=== PATIENT | female | born 1975 | race Caucasian/White ===

== ENCOUNTER 2018-02-20 08:53 | Day surgery (SDC) | payer OTHER, SELFPAY ==
[2018-02-20] VITALS (14 sets, daily range): BP systolic 105–139; BP diastolic 66–92; PULSE 75–97; RESP 8–19; TEMP 36–36.7; O2SAT 95–100; BMI 40.0
[2018-02-20] MEDS: LACTATED RINGERS 1,000 ML 42 ML IV ×2 (09:20→13:50)
--- NOTE | 2018-02-20 10:26 | PM.PREOP ---
Pre-operative Note Interval Note Pre-op Check: History & Physical Reviewed by Physician and Exam Performed H&P completed within 30 days and has changed as indicated here:: No changes
[2018-02-20] MEDS: CEFAZOLIN 2 GM/100 ML FROZ.PIGGY 0.733 GM IV (11:05)
--- NOTE | 2018-02-20 11:32 | SUR.OPER ---
Supine on padded OR bed, head on pillow, arms secured on padded arm boards at <90 degrees abduction, legs uncrossed, safety belt at thigh, tape over blanket over lower legs. Lateral thigh support in place.
[2018-02-20] MEDS: MORPHINE-PF 10 MG/10 ML INJ INJ (11:38)
[2018-02-20] MEDS: SODIUM CHLORIDE IRRIG SOLUTION 3,000 ML, EPINEPHrine 1 MG IRR (11:39)
[2018-02-20] MEDS: ROPIVACAINE 0.2% PF 2 MG/ML 10ML AMP 10 ML INJ (11:39)
[2018-02-20] MEDS: fentaNYL 100 MCG/2 ML INJ IV (12:53)
[2018-02-20] MEDS: HYDROMORPHONE 2 MG INJ 0.5 MG IV ×4 (13:02→13:30)
[2018-02-20] MEDS: fentaNYL 100 MCG/2 ML INJ 50 MCG IV ×2 (13:05→13:22)
--- NOTE | 2018-02-20 13:13 | P.OP_ITS ---
Operative Date/Time/Diagnoses Date of procedure: 02/20/18 Time of procedure: 11:20 Pre-op diagnosis: Medial meniscus tear Post-op diagnosis: other (Lateral meniscus tear, medial plica) Procedure & Clinicians Procedure: 1. Left knee arthroscopy with lateral meniscus repair and lateral tibial plateau chondroplasty. 2. Left knee arthroscopy with medial plica excision. Same procedure as scheduled: No Indications: This is a 42-year-old female who presented with several month history of left knee pain that began the posterior aspect of the knee but also she had medial sided anterior knee pain. 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 She was referred to Orthopedic Surgery an MRI was obtained that showed a possible medial meniscus tear. Treatment options were discussed with the patient include indications, expectations, risks and benefits. We discussed the risks of surgery to include but not limited to infection, bleeding, damage to neurovascular structures, need for additional surgery, recurrent meniscus tears, persistent or worsening pain, iatrogenic chondromalacia, deep vein thrombosis, pulmonary embolism, loss of limb and loss of life. After answering all questions, patient elected to proceed with surgery and informed consent was obtained. Surgeon: Mary Reynoso Rfid Analyst: Gato Ernst Anesthesia Type: General (LMA) and Local (10 mg of Duramorph and 10 mg of 0.2 opivacaine were injected intra-articularly and 5 mL of 0.2 opivacaine without epinephrine were injected about the portal incisions.) Operative Notes Findings: 1. Lateral meniscus capsule labral separation the posterior horn. 2. Medial plica with adjacent chondromalacia of the medial femoral condyle. 3. 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 Closure Type: primary Specimen(s): none sent Implants & Drains: Barker [employer] Nephew Fast Fix 360 degree meniscal repair x2. Estimated Blood Loss (mL): 5 Blood products transfused: none Tourniquet time (min): 0 Procedure in detail: The patient was met in the preoperative hold area on the morning of surgery were reconfirmed with the correct patient, were planed to the correct procedure had the correct extremity which was the left lower extremity identified. Prior to the patient receiving any medications operative extremity was initialed by the surgeon. The patient was then brought back to the operating room in stable condition placed supine on the operating room table. All bony prominences were well padded and sequential compression devices were placed on the nonoperative lower extremity. General anesthesia was then induced without complication and LMA was placed. The left lower extremity was then examined under anesthesia and found to have a range of motion of 0-130 degrees, stable to varus and valgus at both 0 and 30?, negative anterior and posterior drawer. The left lower extremity was prepped and draped in usual sterile fashion. After final draping an additional ChloraPrep was utilized on the operative site. 3 min were allowed to elapse to enable ChloraPrep to dry. We held a surgical time-out we confirmed that with the correct patient, planned to correct procedure and had the correct extremity which is left lower extremity identified. We also confirmed the patient received preoperative antibiotics, that all necessary gear was in the room confirmed sterile, and that no members of the operative team had a concerns. I began by making a standard anterio- lateral portal by 1st sharply incised with 11 blade and introduced a trocar with a blunt introducer into the patellofemoral joint. I then inserted the camera and began my diagnostic examination. Immediately upon entering the patellofemoral joint diffuse grade 2 and 3 chondromalacia was evident. The other no loose bodies in the lateral gutter. The was a medial plica with adjacent chondromalacia on the medial femoral condyle. I then continued into the medial compartment. I made a standard anterior medial portal under direct visualization by 1st localizing with an 18 gauge needle and then incising the skin with 11 blade introducing a blunt dissector into the medial compartment. I then introduced a probe and continued my examination. There was diffuse grade 2 and 3 chondromalacia of both the medial femoral condyle and the medial tibial plateau. The medial meniscus was intact without any tears. I then continued my examination to the notch where the ACL and PCL were intact. I then examined the lateral compartment where there was grade 2 and 3 diffuse chondromalacia of the tibial plateau. Probing of the lateral meniscus showed there to be a meniscal capsular separation at the posterior horn with some increased excursion of the lateral meniscus into the joint. I then inserted a sucker shaver and debrided this tear. During debridement fluid presumably from the Castle cyst was seen coming into the joint. I then inserted a ball rasp and rasped the tear. I then utilized a sucker shaver to debride the lateral tibial plateau of any loose cartilage. I then utilized a sucker shaver to debride the medial plica. I then turned my attention to repairing the lateral meniscus and inserted a [employer]hew 360 degree fast fix at the labral capsular junction in a horizontal mattress fashion. They remained still some gap between the labrum and the capsular for inserted a 2nd one in a vertical mattress fashion. I then inserted the probe and confirmed that the meniscus no longer had abnormal excursion into the joint. All arthroscopic equipment was then removed from the knee. The lateral portal subcuticular layer was closed utilizing 2 -0 Vicryl in a buried fashion. The skin of both portals was closed utilizing 3-0 Monocryl in buried simple fashion. Mastisol Steri-Strips were then placed over the incisions. I then injected 10 mg of Duramorph and 10 mg of 0.2% ropivacaine without epinephrine intra-articularly through a superior lateral approach. I then injected 5 mL of 0.2% ropivacaine without epinephrine about the portal incisions. The wounds were then dressed with sterile Xeroform, plain gauze and ABD. A Matt hose was then placed over this. All sponge counts and needle counts were correct at the conclusion of the case. Patient was woken from general anesthesia without complication taken to the PACU in stable condition. Complications: none Condition: stable Disposition: PACU Plan for aftercare: Patient will discharge home same day surgery. She will be nonweightbearing on her left lower extremity with crutches. She will be in a [id number] brace with the brace locked in extension. I will see the patient back in 10-14 days for wound check.
[2018-02-20] MEDS: LORazepam 2 MG/ML SYRINGE 0.25 MG IV (13:17)
--- NOTE | 2018-02-20 13:45 | SUR.PHASEI ---
OPERATIVE EXTREMITY HAS THIGH HIGH PORTER HOSE ON PLACE OVER ABD DRESSING WHICH IS C/D//I.
[2018-02-20] MEDS: OXYCODONE/ACETAMINOPHEN 5/325 TABLET 1 TAB PO ×2 (14:06→14:37)
== END 2018-02-20 15:07 ==
PROVIDERS: PCP Family Medicine; Visit Provider Orthopaedic Surgery
PROC: (CPT 29870; principal; 2018-02-20 10:15)
DX: S83.282A Other tear of lateral meniscus, current injury, left knee, initial encounter (principal); M94.262 Chondromalacia, left knee; M67.52 Plica syndrome, left knee; E66.9 Obesity, unspecified; G47.33 Obstructive sleep apnea (adult) (pediatric)
CPT/HCPCS: 29882; J0171; J0690; J1100; J1170; J2060; J2250; J2274; J2405; J2704; J2795; J3010

== ENCOUNTER 2018-03-06 18:21 | Emergency (ER) | payer OTHER, SELFPAY ==
[2018-03-06 18:33] VITALS: BP 129/85; PULSE 90; RESP 16; TEMP 36.8; O2SAT 98
--- NOTE | 2018-03-06 21:25 | DI.RAD.S_ITS ---
PROCEDURE: XR FOOT LT MIN 3V INDICATIONS: pain, decreased range of motion after heavy step TECHNIQUE: 3 views of the foot were acquired. COMPARISON: None. FINDINGS: Bones: No fractures or dislocations. No suspicious bony lesions. Soft tissues: No tibiotalar joint effusion. Achilles tendon appears normal. IMPRESSION: No visualized acute fracture or dislocation. However, if clinical concern and/or pain persist, short interval imaging followup in 7-10 days is recommended, as occult injury cannot be definitively excluded. Dictated by: Ryanne Andersen M.D. on 03/06/2018 at 22:14 Approved by: Ryanne Andersen M.D. on 03/06/2018 at 22:15
--- NOTE | 2018-03-06 21:35 | ED.LOWEXIN ---
HPI - Extremity Injury (Lower) <MORELIA Manning - Last Filed: 03/06/18 23:19> General Chief Complaint: Extremity Injury, Lower Stated Complaint: LE FOOT GETTING WARM, SWOLLEN Time Seen by Provider: 03/06/18 21:20 Source: patient Mode of arrival: ambulatory Limitations: no limitations History of Present Illness HPI Narrative: Patient presents with left foot pain after taking a hard step onto left foot. She states she almost fell and bent back the top of her foot. She has history of her recent meniscus repair. She has been taking Tylenol for it. This accident occurred on Saturday. She denies numbness or tingling in her foot. She has applied ice. She is concerned about a fracture or a blood clot. She states that her foot feels hot on the top in on the inside. Related Data Home Medications Medication Instructions Recorded Confirmed cholecalciferol (vitamin D3) 2,000 unit PO 02/17/18 [Vitamin D3] pantoprazole [Protonix] 40 mg PO DAILY 02/17/18 03/06/18 acetaminophen [Mapap 650 mg PO Q6HR PRN 03/06/18 03/06/18 (acetaminophen)] celecoxib 100 mg PO DAILY 03/06/18 03/06/18 Allergies Allergy/AdvReac Type Severity Reaction Status Date / Time No Known Drug Allergies Allergy Verified 02/17/18 14:09 [facility] Systems [facility] Last Filed: 03/06/18 23:19> Review of Systems GENERAL: Denies chills, fatigue, malaise, fever, sweats. HEENT: Denies sinus pain, ear pain, sore throat, difficulty swallowing, dizziness. RESPIRATORY: Denies dyspnea, cough, wheezing, hemoptysis, sputum. CARDIOVASCULAR: Denies chest pain, palpitations, orthopnea, edema, GASTROINTESTINAL: Denies nausea, vomiting, abdominal pain, diarrhea, constipation, melena. : Denies dysuria, frequency, incontinence, hematuria, urinary retention. MUSCULOSKELETAL: See HPI SKIN: See HPI NEUROLOGIC: Denies weakness, headache, numbness, change in speech, confusion, seizures, incoordination. PSYCHIATRIC: No concerning psychosocial issues. 12 point review of systems is negative except for those stated above Exam [facility] - Last Filed: 03/06/18 23:19> Narrative Exam Narrative: GENERAL: This is a well-nourished patient lying on stretcher with knee brace on. HEAD: Atraumatic. Normocephalic. No temporal or scalp tenderness. EYES: Pupils equal round and reactive. Extraocular motions intact. No scleral icterus. No injection or drainage. ENT: Nose without bleeding, purulent drainage or septal hematoma. Throat without erythema, tonsillar hypertrophy or exudate. Uvula midline. Airway patent. NECK: Trachea midline. No JVD or lymphadenopathy. Supple, nontender, no meningeal signs. CARDIOVASCULAR: Regular rate and rhythm without murmurs, gallops, or rubs. RESPIRATORY: Clear to auscultation. Breath sounds equal bilaterally. No wheezes, rales, or rhonchi. GASTROINTESTINAL: Abdomen soft, non-tender, nondistended. EXTREMITIES: Left foot has positive pedal pulses. Capillary refill less than 2 sec all toes of left foot. Negative Homans sign on left foot. Bilateral lower legs appear symmetrical. No pain to palpation left calf. Slight swelling noted on dorsal aspect of left foot. Pain to palpation across left navicular. BACK: Nontender without deformity or crepitance. No flank tenderness. NEURO: AOx3. No slurred speech. SKIN: Slight ecchymosis noted on dorsal aspect of left foot. No warmth to palpation. Skin is intact. No erythema noted. Initial Vital Signs Initial Vital Signs: Vital Signs Temperature 98.2 F 03/06/18 18:33 Pulse Rate 90 03/06/18 18:33 Respiratory Rate 16 03/06/18 18:33 Blood Pressure 129/85 H 03/06/18 18:33 Pulse Oximetry 98 03/06/18 18:33 <Nova Huston DO - Last Filed: 03/07/18 06:10> Initial Vital Signs Initial Vital Signs: Vital Signs Temperature 98.2 F 03/06/18 18:33 Pulse Rate 90 03/06/18 18:33 Respiratory Rate 16 03/06/18 18:33 Blood Pressure 129/85 H 03/06/18 18:33 Pulse Oximetry 98 03/06/18 18:33 Course <CECIL Manning-BC - Last Filed: 03/06/18 23:19> Orders Ordered: ED Orders 03/06/18 21:25 XR foot LT min 3V Stat Reevaluation(s) Reevaluation #1: Discussed negative x-ray result. Left foot remains with pedal pulses intact. Time: 22:25 Vital Signs - 8 hr 03/06/18 18:33 Temperature 98.2 F Pulse Rate 90 Respiratory Rate 16 Blood Pressure 129/85 H Pulse Oximetry 98 <Nova Huston DO - Last Filed: 03/07/18 06:10> Orders Ordered: ED Orders 03/06/18 21:25 XR foot LT min 3V Stat Vital Signs - 8 hr 03/06/18 18:33 Temperature 98.2 F Pulse Rate 90 Respiratory Rate 16 Blood Pressure 129/85 H Pulse Oximetry 98 MDM - Extremity Injury (Lower) <EDEN Manning - Last Filed: 03/06/18 23:19> Imaging Data foot xray: Radiologist's impression: View Report History [address] [address] XRay Report Signed Patient: Mariann Burgess MR#: [id number] : 1975 Acct:[id number] Age/Sex: 42 / F Date of Service: 03/06/18 Loc: ED Accession Number: [id number] Procedure: XR foot LT min 3V Ordering Provider: Margarita Carvalho PROCEDURE: XR FOOT LT MIN 3V INDICATIONS: pain, decreased range of motion after heavy step TECHNIQUE: 3 views of the foot were acquired. COMPARISON: None. FINDINGS: Bones: No fractures or dislocations. No suspicious bony lesions. Soft tissues: No tibiotalar joint effusion. Achilles tendon appears normal. IMPRESSION: No visualized acute fracture or dislocation. However, if clinical concern and/or pain persist, short interval imaging followup in 7-10 days is recommended, as occult injury cannot be definitively excluded. Dictated by: Ryanne Andersen M.D. on 03/06/2018 at 22:14 Approved by: Ryanne Andersen M.D. on 03/06/2018 at 22:15 [facility] Narrative Medical decision making narrative: Patient presents with left foot pain after trauma. She had a negative x-ray. I discussed at length conservative measures including rest, ice, compression and elevation. Discussed the possibility of a DVT however she has negative Homans sign and the pain is centered on the dorsal aspect of her left foot. She has no noted size discrepancy between her lower legs. I discussed at length follow-up if noted to have swelling or any signs of DVT. She declined waiting for an ultrasound at this point time. I also discussed the possibility of gout, however believe that to be unlikely given that this started after trauma. Discussed at length follow-up if worsening or no improvement. Discussed the possibility of needing repeat imaging. Patient no questions or concerns upon discharge implants to follow up with her primary care provider. Discharge Plan Departure Patient Disposition: Home, Self-Care Clinical Impression: Acute foot pain Discharge Date/Time: 03/06/18 22:41 Interventions: ED Discharge Assessment Last Done: 03/06/18 22:36 Instructions: How To Perform RICE (Rest, Ice, Compress, Elevate), DI for Foot Pain Activity Restrictions/Additional Instructions: Your x-ray came back with no fracture today. I suggest rest, ice, compression and elevation. Follow up with her primary care provider if worsening or no improvement as you may need a repeat imaging we discussed. Stay nonweightbearing as needed for your knee. Monitor for swelling of the foot and ankle. Monitor for pain in the back of the calf for swelling of the lower leg. These are signs of blood clots. Be re-evaluated if any of these occur immediately. Prescriptions: No Action pantoprazole [Protonix] 20 mg Tablet,Delayed Release (Dr/Ec) 40 mg PO DAILY RF: 0 cholecalciferol (vitamin D3) [Vitamin D3] 2,000 unit Capsule 2,000 unit PO RF: 0 celecoxib 100 mg capsule 100 mg PO DAILY RF: 0 acetaminophen [Mapap (acetaminophen)] 325 mg tablet 650 mg PO Q6HR PRN (Reason: Pain (Scale Score 1-3)) RF: 0 <Nova Huston DO - Last Filed: 03/07/18 06:10> Cosign ED Attending Sohaature Attestation: I was immediately available in the department for consultation. Documentation has been reviewed. I agree with assessment and plan.
--- NOTE | 2018-03-06 22:32 | ED_ITS ---
HPI - Extremity Injury (Lower) <MORELIA Manning - Last Filed: 03/06/18 23:19> General Chief Complaint: Extremity Injury, Lower Stated Complaint: LE FOOT GETTING WARM, SWOLLEN Time Seen by Provider: 03/06/18 21:20 Source: patient Mode of arrival: ambulatory Limitations: no limitations History of Present Illness HPI Narrative: Patient presents with left foot pain after taking a hard step onto left foot. She states she almost fell and bent back the top of her foot. She has history of her recent meniscus repair. She has been taking Tylenol for it. This accident occurred on Saturday. She denies numbness or tingling in her foot. She has applied ice. She is concerned about a fracture or a blood clot. She states that her foot feels hot on the top in on the inside. Related Data Home Medications Medication Instructions Recorded Confirmed cholecalciferol (vitamin D3) 2,000 unit PO 02/17/18 [Vitamin D3] pantoprazole [Protonix] 40 mg PO DAILY 02/17/18 03/06/18 acetaminophen [Mapap 650 mg PO Q6HR PRN 03/06/18 03/06/18 (acetaminophen)] celecoxib 100 mg PO DAILY 03/06/18 03/06/18 Allergies Allergy/AdvReac Type Severity Reaction Status Date / Time No Known Drug Allergies Allergy Verified 02/17/18 14:09 Review of Systems <[facility] - Last Filed: 03/06/18 23:19> Review of Systems GENERAL: Denies chills, fatigue, malaise, fever, sweats. HEENT: Denies sinus pain, ear pain, sore throat, difficulty swallowing, dizziness. RESPIRATORY: Denies dyspnea, cough, wheezing, hemoptysis, sputum. CARDIOVASCULAR: Denies chest pain, palpitations, orthopnea, edema, GASTROINTESTINAL: Denies nausea, vomiting, abdominal pain, diarrhea, constipation, melena. : Denies dysuria, frequency, incontinence, hematuria, urinary retention. MUSCULOSKELETAL: See HPI SKIN: See HPI NEUROLOGIC: Denies weakness, headache, numbness, change in speech, confusion, seizures, incoordination. PSYCHIATRIC: No concerning psychosocial issues. 12 point review of systems is negative except for those stated above Exam <CAR[facility] - Last Filed: 03/06/18 23:19> Narrative Exam Narrative: GENERAL: This is a well-nourished patient lying on stretcher with knee brace on. HEAD: Atraumatic. Normocephalic. No temporal or scalp tenderness. EYES: Pupils equal round and reactive. Extraocular motions intact. No scleral icterus. No injection or drainage. ENT: Nose without bleeding, purulent drainage or septal hematoma. Throat without erythema, tonsillar hypertrophy or exudate. Uvula midline. Airway patent. NECK: Trachea midline. No JVD or lymphadenopathy. Supple, nontender, no meningeal signs. CARDIOVASCULAR: Regular rate and rhythm without murmurs, gallops, or rubs. RESPIRATORY: Clear to auscultation. Breath sounds equal bilaterally. No wheezes , rales, or rhonchi. GASTROINTESTINAL: Abdomen soft, non-tender, nondistended. EXTREMITIES: Left foot has positive pedal pulses. Capillary refill less than 2 sec all toes of left foot. Negative Homans sign on left foot. Bilateral lower legs appear symmetrical. No pain to palpation left calf. Slight swelling noted on dorsal aspect of left foot. Pain to palpation across left navicular. BACK: Nontender without deformity or crepitance. No flank tenderness. NEURO: AOx3. No slurred speech. SKIN: Slight ecchymosis noted on dorsal aspect of left foot. No warmth to palpation. Skin is intact. No erythema noted. Initial Vital Signs Initial Vital Signs: Vital Signs Temperature 98.2 F 03/06/18 18:33 Pulse Rate 90 03/06/18 18:33 Respiratory Rate 16 03/06/18 18:33 Blood Pressure 129/85 H 03/06/18 18:33 Pulse Oximetry 98 03/06/18 18:33 <Nova Huston DO - Last Filed: 03/07/18 06:10> Initial Vital Signs Initial Vital Signs: Vital Signs Temperature 98.2 F 03/06/18 18:33 Pulse Rate 90 03/06/18 18:33 Respiratory Rate 16 03/06/18 18:33 Blood Pressure 129/85 H 03/06/18 18:33 Pulse Oximetry 98 03/06/18 18:33 Course <CECIL Manning-BC - Last Filed: 03/06/18 23:19> Orders Ordered: ED Orders 03/06/18 21:25 XR foot LT min 3V Stat Reevaluation(s) Reevaluation #1: Discussed negative x-ray result. Left foot remains with pedal pulses intact. Time: 22:25 Vital Signs - 8 hr 03/06/18 18:33 Temperature 98.2 F Pulse Rate 90 Respiratory Rate 16 Blood Pressure 129/85 H Pulse Oximetry 98 <Nova Huston DO - Last Filed: 03/07/18 06:10> Orders Ordered: ED Orders 03/06/18 21:25 XR foot LT min 3V Stat Vital Signs - 8 hr 03/06/18 18:33 Temperature 98.2 F Pulse Rate 90 Respiratory Rate 16 Blood Pressure 129/85 H Pulse Oximetry 98 MDM - Extremity Injury (Lower) <EDEN Manning - Last Filed: 03/06/18 23:19> Imaging Data foot xray: Radiologist's impression: View Report History [address] [address] XRay Report Signed Patient: Mariann Burgess MR#: [id number] : 1975 Acct:[id number] Age/Sex: 42 / F Date of Service: 03/06/18 Loc: ED Accession Number: [id number] Procedure: XR foot LT min 3V Ordering Provider: Margarita Carvalho PROCEDURE: XR FOOT LT MIN 3V INDICATIONS: pain, decreased range of motion after heavy step TECHNIQUE: 3 views of the foot were acquired. COMPARISON: None. FINDINGS: Bones: No fractures or dislocations. No suspicious bony lesions. Soft tissues: No tibiotalar joint effusion. Achilles tendon appears normal. IMPRESSION: No visualized acute fracture or dislocation. However, if clinical concern and/or pain persist, short interval imaging followup in 7-10 days is recommended , as occult injury cannot be definitively excluded. Dictated by: Ryanne Andersen M.D. on 03/06/2018 at 22:14 Approved by: Ryanne Andersen M.D. on 03/06/2018 at 22:15 [facility] Narrative Medical decision making narrative: Patient presents with left foot pain after trauma. She had a negative x-ray. I discussed at length conservative measures including rest, ice, compression and elevation. Discussed the possibility of a DVT however she has negative Homans sign and the pain is centered on the dorsal aspect of her left foot. She has no noted size discrepancy between her lower legs. I discussed at length follow-up if noted to have swelling or any signs of DVT. She declined waiting for an ultrasound at this point time. I also discussed the possibility of gout, however believe that to be unlikely given that this started after trauma. Discussed at length follow-up if worsening or no improvement. Discussed the possibility of needing repeat imaging. Patient no questions or concerns upon discharge implants to follow up with her primary care provider. Discharge Plan Departure Patient Disposition: Home, Self-Care Clinical Impression: Acute foot pain Discharge Date/Time: 03/06/18 22:41 Interventions: ED Discharge Assessment Last Done: 03/06/18 22:36 Instructions: How To Perform RICE (Rest, Ice, Compress, Elevate), DI for Foot Pain Activity Restrictions/Additional Instructions: Your x-ray came back with no fracture today. I suggest rest, ice, compression and elevation. Follow up with her primary care provider if worsening or no improvement as you may need a repeat imaging we discussed. Stay nonweightbearing as needed for your knee. Monitor for swelling of the foot and ankle. Monitor for pain in the back of the calf for swelling of the lower leg. These are signs of blood clots. Be re-evaluated if any of these occur immediately. Prescriptions: No Action pantoprazole [Protonix] 20 mg Tablet,Delayed Release (Dr/Ec) 40 mg PO DAILY RF: 0 cholecalciferol (vitamin D3) [Vitamin D3] 2,000 unit Capsule 2,000 unit PO RF: 0 celecoxib 100 mg capsule 100 mg PO DAILY RF: 0 acetaminophen [Mapap (acetaminophen)] 325 mg tablet 650 mg PO Q6HR PRN (Reason: Pain (Scale Score 1-3)) RF: 0 <Nova Huston DO - Last Filed: 03/07/18 06:10> Cosign ED Attending Sohaature Attestation: I was immediately available in the department for consultation. Documentation has been reviewed. I agree with assessment and plan.
== END 2018-03-06 22:41 | disposition home or self-care (01) ==
PROVIDERS: Emergency Provider Nurse Practitioner Family; PCP Family Medicine
DX: M79.673 Pain in unspecified foot (principal)
CPT/HCPCS: 73630; 99282; 99283

== ENCOUNTER 2018-04-18 13:55 | Day surgery (SDC) | payer OTHER, SELFPAY ==
--- NOTE | 2018-04-18 | PATH_ITS ---
[facility] Accession Number: [id number] . 01 Material submitted: . PART A: ENDOMETRIAL MASSES PART B: ENDOMETRIAL CURETTINGS . 02 Diagnosis: A. Endometrium, Masses, Biopsy: Multiple fragments of benign endometrial polyp. No evidence of neoplasia or hyperplasia. . B. Endometrium, Curettings: Disordered proliferative endometrium. No evidence of neoplasia or hyperplasia. L/04/23/2018 . 02 Electronically signed: . Prema Ahumada MD, Pathologist NPI- [id number] . 01 Gross description: . A. Received in formalin, labeled endometrial masses, are multiple fragments of shi tissue (5.5 x 3.0 x 0.6 cm in aggregate). Entirely submitted in cassettes A1 and A2. B. Received in formalin, labeled endometrial curettings are multiple fragments of red-brown tissue (3.2 x 2.8 x 0.3 cm in aggregate). Filtered and entirely submitted in cassette B1. ([id number]) /MRV . 02 Pathologist provided ICD-10: N93.9, N84.0 . 02 CPT . 182469, 539471 Specimen Comment: A duplicate report has been generated due to demographic updates. Performed at: 01 [facility] [address] [facility], [place], [place] [id number] MD Rashard Hernandez MD Phone: [phone] Performed at: 02 [facility] [place] [address] [place], [place] [id number] MD Jose Antonio Astorga MD Phone: [phone]
[2018-04-18 16:11] VITALS: BP 122/71; PULSE 96; RESP 12; TEMP 36.6; O2SAT 100; BMI 39.3
[2018-04-18] MEDS: LACTATED RINGERS 1,000 ML 100 ML IV (16:21)
--- NOTE | 2018-04-18 18:03 | PM.PREOP ---
Pre-operative Note Interval Note Pre-op Check: Yes History & Physical Reviewed by Physician Changes: No
[2018-04-18] MEDS: CEFAZOLIN 2 GM/100 ML FROZ.PIGGY IV (18:18)
[2018-04-18] MEDS: BUPIVACAINE 0.25% W/ EPI VIAL 50 ML INJ (18:37)
--- NOTE | 2018-04-18 18:42 | SUR.OPER ---
Lithotomy on padded OR bed, head on pillow, arms secured on padded arm boards at <90 degrees abduction. Legs secured in padded yellow fins stirrups.
[2018-04-18 18:59] VITALS: BP 104/69; PULSE 81; RESP 18; TEMP 36.2; O2SAT 93
[2018-04-18 19:04] VITALS: BP 109/70; PULSE 73; RESP 13; O2SAT 94
[2018-04-18 19:09] VITALS: BP 114/72; PULSE 78; RESP 15; TEMP 36; O2SAT 96
[2018-04-18 19:15] VITALS: BP 117/74; PULSE 69; RESP 13; TEMP 36.1; O2SAT 97
[2018-04-18 19:21] VITALS: BP 115/78; PULSE 68; RESP 16; TEMP 36.7; O2SAT 100
--- NOTE | 2018-04-19 07:41 | PM.GYNOP.1 ---
Operative Date/Time/Diagnoses Date of procedure: 04/18/18 Time of procedure: 17:42 Pre-op diagnosis: Abnormal uterine bleeding, endometrial mass Post-op diagnosis: same Procedure: Procedures Operation Date: 04/18/18 15:15 Actual Procedures Side Surgeon p Hysteroscopy D&C w/Endometrial Ablation, polypectomy Nila Linton MD Indications: The patient is a 42-year-old 2 para 2 (living 3 due to twins) here for hysteroscopy, removal of endometrial polyp or fibroid, and endometrial ablation for management of bothersome abnormal uterine bleeding. She has had prolonged bleeding with rare breaks since November of 2017. Bleeding varies in quantity. On her heaviest days, she has to use a tampon every 0.5 hr and passes clots. She has accompanying cramping, which is sometimes very uncomfortable. A pelvic ultrasound showed a 2 cm vascular mass with the appearance of an endometrial polyp, as well as functional ovarian cyst and probable nabothian cervical cyst. The management options were reviewed, and the patient elected for surgery as above. The risks, benefits, limitations, alternatives, and expectations of surgery were discussed, and the consent was reviewed and signed prior to the surgery. Surgeon: Nila Linton Anesthesia Type: General and Local (1% lidocaine with epi) Operative Notes Findings: Exam under anesthesia: The uterus is mid-plane at approximately 7 weeks in size. No adnexal masses palpable. Operative findings: The endometrial cavity was successfully distended using sterile saline. The tubal ostia were seen bilaterally. Within the lower uterine segment were two large polypoid structures, one originating from the right lower uterine segment/upper cervix, and 1 originating from the posterior lower uterine segment. These were both removed easily with curettage and passage with polyp forceps. Closure Type: not applicable Specimen(s): endometrial curettings and other (Endometrial mass) Estimated blood loss (mL): 5 Blood products transfused: none Procedure in detail: The patient was taken to the operating room where general anesthesia with LMA was administered without difficulty. She was then placed in the high dorsal lithotomy position with her lower extremities in [place] stirrups. Exam under anesthesia was then performed with the findings as noted above. Perineum and vagina were then prepped and draped in a sterile fashion, and in-and-out catheterization was performed. Procedure Time-Out was performed. A sterile bivalve speculum was then placed. The anterior lip of the cervix was then grasped with a single-toothed tenaculum. Local anesthetic using 1% lidocaine with epinephrine was then injected at the 2:00, 4:00, 7:00, and 10:00 positions for a paracervical block. The cervix was then serially dilated until a 7 mm 30-degree hysteroscope could be gently advanced to the uterine fundus. Using sterile saline for distention, the endometrial cavity was visualized with the findings as noted above. Sharp curettage was then performed on all 4 brown of the uterus. This tissue was sent for pathology, the larger pieces of tissue sent as endometrial mass, and the curettings sent as endometrial curettings. The hysteroscope was then reintroduced, and some residual polypoid tissue was noted. Polyp forceps were then utilized to remove a large piece of polypoid tissue. The hysteroscope was then introduced again, and the endometrial cavity appeared clear. The NovaSure endometrial ablation device was then placed onto the sterile field. The endometrial cavity length was measured to be 4.5 cm. The NovaSure device was then inserted into the endometrium, and the array deployed. The endometrial cavity width was determined to be 4.3 cm. Carbon dioxide gas insufflation test was then performed without complication. Ablation was then performed for 79 sec to a power of 102 W. The array was then retracted, and the device removed from the endometrial cavity. The diagnostic hysteroscope was then replaced into the endometrial cavity, and visualization noted excellent cauterization throughout. The hysteroscope was then removed. The tenaculum was then removed, and the tenaculum sites hemostatic after application of silver nitrate. At this point, the procedure was deemed complete. Sponge, lap, and needle count were correct x3. There were no complications. The patient was then taken to the recovery room in stable condition. Complications: none Post-operative Condition: stable Disposition: PACU Plan for aftercare: Discharge to home with postop precautions.
== END 2018-04-18 19:36 ==
LOC: OR 13:55
PROVIDERS: PCP Family Medicine; Visit Provider Obstetrics & Gynecology
PROC: 0U5B8ZZ Destruction of Endometrium, Via Natural or Artificial Opening Endoscopic (ICD-10-PCS; CPT 58563; principal; 2018-04-18 15:15)
DX: N92.0 Excessive and frequent menstruation with regular cycle (principal); F17.210 Nicotine dependence, cigarettes, uncomplicated; E66.01 Morbid (severe) obesity due to excess calories; N84.0 Polyp of corpus uteri
CPT/HCPCS: 58563; 58558; J0690; J1100; J1885; J2250; J2405; J2704; J3010